=== PATIENT | male | born 1960 | race Caucasian/White ===

== ENCOUNTER 2017-12-04 14:02 | Emergency (ER) | payer MEDICAID ==
--- NOTE | 2017-12-04 14:49 | EDPHY ---
H & P Stated Complaint: palpitations, lump in throat hx of ablation a few years ago Time Seen by Provider: 12/04/17 14:47 HPI/ROS: CHIEF COMPLAINT: Palpitations HISTORY OF PRESENT ILLNESS: 57-year-old male with atrial flutter, status post ablation, presents with palpitations. Onset of intermittent palpitations 4 days ago. Heart rate has not been fast, but every few seconds he has a palpitation. Associated with anxiety. No alleviating/aggravating factors. Stopped drinking caffeine; no alcohol use. No recent illness. No chest pain, shortness of breath or dizziness. REVIEW OF SYSTEMS: complete 10 point ROS reviewed and is negative except for the noted findings in the HPI - Medical/Surgical History Hx Asthma: No Hx Chronic Respiratory Disease: No Hx Diabetes: No Hx Cardiac Disease: Yes Hx Renal Disease: No Hx Cirrhosis: No Hx Alcoholism: No Hx HIV/AIDS: No Hx Splenectomy or Spleen Trauma: No Other PMH: atrial flutter, ablation - Social History Smoking Status: Current some day smoker Alcohol Use: None Drug Use: None - Physical Exam Exam: General Appearance: Alert, pleasant Eyes: Pupils equal and round, no conjunctival pallor or injection ENT, Mouth: Mucous membranes moist Neck: Normal inspection Respiratory: Lungs are clear to auscultation Cardiovascular: Regular rate and rhythm, occasional ectopic beat, no murmur Gastrointestinal: Abdomen is soft and nontender Neurological: A&O, nonfocal, normal gait Skin: Warm and dry, no rash Extremities: Normal inspection Psychiatric: Mood and affect normal Constitutional: Initial Vital Signs Temperature (C) 36.7 C 12/04/17 14:03 Heart Rate 87 12/04/17 14:03 Respiratory Rate 18 12/04/17 14:03 Blood Pressure 114/87 H 12/04/17 14:03 O2 Sat (%) 96 12/04/17 14:03 O2 Delivery Mode Room Air Allergies/Adverse Reactions: raw shrimp Allergy (Uncoded 12/04/17 14:03) Home Medications: Medication Instructions Recorded NK [No Known Home Meds] 12/04/17 Medical Decision Making - Diagnostics EKG Interpretation: EKG interpreted by me reveals normal sinus rhythm, rate 84, PAC, no ST or T segment changes. Interpretation: borderline EKG ED Course/Re-evaluation: This pt presents with palpitations. EKG: NSR with PAC's. During my interview with pt, he is clearly symptomatic with PAC's. Will obs. POC troponin ordered by ED RN, result is elevated, though clinically I do not suspect ACS. Lab troponin obtained and is normal. d/w pt, safe/stable for d/c home. Will f/u with cardiology. Differential Diagnosis: includes though not limited to SVT, Aflutter with RVR, ventricular dysrhythmia, electrolyte abn - Data Points Laboratory Results: Laboratory Results 12/04/17 12:20 12/04/17 12:20 Medications Given: Discontinued Medications Sodium Chloride (Ns) 1,000 mls @ 0 mls/hr IV ONCE ONE; Wide Open PRN Reason: Protocol Stop: 12/04/17 15:07 Last Admin: 12/04/17 15:11 Dose: 1,000 mls Point of Care Test Results: Chemistry 12/04/17 15:19 POC Troponin I 0.11 ng/mL H ng/mL (0.00-0.08) Departure - Departure Disposition: Home, Routine, Self-Care Clinical Impression: Premature atrial contractions Condition: Good Instructions: Premature Atrial Contractions (ED) Referrals: Сергей Turner MD [Medical Doctor] - As per Instructions (Call to make an appointment.)
[2017-12-04 15:06] LABS: PLATELET COUNT 288 10^3/uL (150-400)
[2017-12-04] MEDS ORDERED: NS 1,000 ML IV ONE (15:06)
[2017-12-04 16:56] VITALS: BP 127/80
--- NOTE | 2017-12-04 21:20 | CPEKG ---
Test Reason : OPEN Blood Pressure : / mmHG Vent. Rate : 084 BPM Atrial Rate : 084 BPM P-R Int : 150 ms QRS Dur : 084 ms QT Int : 374 ms P-R-T Axes : 072 092 047 degrees QTc Int : 443 ms Sinus rhythm Atrial premature complex Borderline right axis deviation Borderline ST elevation, anterior leads Confirmed by Zora Nance ([id number]) on 12/04/2017 9:19:47 PM Referred By: Confirmed By:Zora Nance
== END 2017-12-04 16:55 | disposition home or self-care (01) ==
DX: I49.1 Atrial premature depolarization (principal); E86.9 Volume depletion, unspecified; F17.200 Nicotine dependence, unspecified, uncomplicated
CPT/HCPCS: 84484-PO

== ENCOUNTER 2018-05-10 01:12 | Emergency (ER) | payer MEDICAID ==
[2018-05-10] MEDS ORDERED: DILTIAZEM 25 MG/5 ML VIAL IVP ONE ×2 (01:49→01:55)
[2018-05-10] MEDS ORDERED: PROCAINAMIDE HCL 1,000 MG in D5W 50 ML IV ONE (03:00)
--- NOTE | 2018-05-10 05:31 | EDPHY ---
H & P Stated Complaint: palpitations Time Seen by Provider: 05/10/18 01:25 HPI/ROS: Time Seen By Provider: 1:25a CC: Irregular heart beat HPI: The patient presents from home with palpitations. 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 He began to feel dizzy. He took a break from work, drink some tea. He went home and took a nap and was feeling better. He ate dinner, however while trying to go to bed he felt the palpitations return. They are constant, moderate in severity, and feels like his prior palpitations. He currently does not have any dizziness, chest pain, shortness of breath, nausea, vomiting. He says he has had occasional palpitations over the last several months occurring 4 to 5 times a week but lasting just for minutes. Of note, patient was seen in the emergency department in November of 2017 with palpitations, was found to have frequent PACs though no atrial flutter. He is followed by Dr. Turner at [facility] and had cardiac ablation performed about 3 years ago. He is not on any antiarrhythmics. REVIEW OF SYSTEMS 10 systems were reviewed and negative with the exception of the elements mentioned in the history of present illness. 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, smokes marijuana, going to be losing his housing next month PHYSICAL General Appearance: Alert, no distress Eyes: Pupils equal and round no pallor or injection ENT, Mouth: Mucous membranes moist Respiratory: There are no retractions, lungs are clear to auscultation Cardiovascular: Irregularly irregular Gastrointestinal: Abdomen is soft and non-tender, no masses, bowel sounds normal Neurological: A&O, moves all extremities Skin: Warm and dry, no rashes Musculoskeletal: Neck is supple non tender Extremities: symmetrical, full range of motion Psychiatric: Patient is oriented X 3, there is no agitation EKG: Complete interpretation has been separately recorded in the [facility] archive. Summary impression: Atrial fibrillation with RVR, rate of approximately 130. Studies: Chest x-ray single view demonstrates no cardiomegaly, no infiltrate, interpreted by me, radiology interpretation is pending. Assessment: This is a 58-year-old man with history of intermittent atrial flutter status post cardiac ablation by Dr. Johnny about 3 years ago who presents with palpitations which began earlier this afternoon and have been intermittent throughout the course of the day today. Initially associated with dizziness, however now this has resolved and his only symptom is palpitations. On arrival, the patient is in atrial fibrillation with RVR with rate greater than 100. Blood pressure is normal and he is generally well-appearing. Differential diagnosis: Atrial fibrillation, dehydration, electrolyte disturbance, less likely acute decompensated heart failure, less likely ACS given no chest pain, less likely PE given no chest pain or shortness of breath. ED course: IV line was established and patient was given IV fluids as well as a single dose of diltiazem. This caused his heart rate to improved to the 70s, however he was still in atrial fibrillation. We discussed risks and benefits of cardioversion and he would like to proceed. I will initiate procainamide given that he is healthy with no comorbidities, has been in AFib for less than 48 hr. After receiving this, he converted to a normal sinus rhythm and felt well. Chads Vasc 2 score calculated at 0. Patient is very reluctant to begin anticoagulation as he works as a [employer]don[employer] and is worried about easy bleeding. 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 Turner in the next few days. Return to the ER if worse in any way. Source: Patient Exam Limitations: No limitations - Medical/Surgical History Hx Asthma: No Hx Chronic Respiratory Disease: No Hx Diabetes: No Hx Cardiac Disease: Yes Hx Renal Disease: No Hx Cirrhosis: No Hx Alcoholism: No Hx HIV/AIDS: No Hx Splenectomy or Spleen Trauma: No Other PMH: atrial flutter, ablation - Social History Smoking Status: Current some day smoker Allergies/Adverse Reactions: raw shrimp Allergy (Uncoded 12/04/17 14:03) Home Medications: Medication Instructions Recorded NK [No Known Home Meds] 12/04/17 Departure - Departure Disposition: Home, Routine, Self-Care Clinical Impression: Paroxysmal A-fib Condition: Good Instructions: A-fib (Atrial Fibrillation) (ED) Additional Instructions: Please make sure to drink plenty of fluids. Avoid caffeine or alcohol. Please follow-up with Dr. Turner in the next few days. Referrals: Сергей Turner MD [Medical Doctor] - As per Instructions
[2018-05-10 06:44] LABS: PLATELET COUNT 278 10^3/uL (150-400)
== END 2018-05-10 03:45 | disposition home or self-care (01) ==
DX: I48.0 Paroxysmal atrial fibrillation (principal)
CPT/HCPCS: 96365; J2690